=== PATIENT | male | born 1990 | race Caucasian/White ===

== ENCOUNTER 2016-12-11 10:56 | Emergency (ER) | payer OTHER ==
[~2016-12-11] VITALS: Ht 188 cm; Wt 133.5 kg
[2016-12-11 11:01] VITALS: BP 157/80; PULSE 74; TEMP 36.6; O2SAT 98; Ht 188 cm; Wt 133.5 kg
--- NOTE | 2016-12-11 11:45 | DIAGNOSTIC IMAGING REPORT ---
LEFT HAND 3 VIEWS HISTORY: Left hand pain and INJURY COMPARISON: None. FINDINGS: There is no fracture or dislocation. Soft tissues are unremarkable. No radiopaque foreign bodies. IMPRESSION: No fractures. Electronically signed by: Pedro Pablo Magaña M.D. 12/11/2016 11:44 AM Dictated Date/Time: 12/11/2016 11:42 AM
--- NOTE | 2016-12-11 16:02 | EMERGENCY ROOM VISIT NOTE ---
History First contact with patient: 11:05 Chief Complaint: HAND PAIN/INJURY Stated Complaint: L HAND,HARD TIME GRIPPING,HURTS,CLICKING History of Present Illness The patient is a 26 year old male who presents to the Emergency Room with complaints of left hand pain. The patient reports that he lifts heavy boxes at work, and felt a pop on the dorsum of his left hand this morning while moving heavy boxes. His employer sent him to the emergency department for further evaluation. The patient denies any prior history of injuries to the left hand, or chronic hand pain. He currently denies any pain extending into the wrist or forearm. The patient is atoqs-[id number]-[id number], and rates his discomfort a 1 out of 10. Review of Systems 10 system review was performed and was negative except for pertinent positives and negatives as indicated in history of present illness Past Medical/Surgical History Medical Problems: (1) No significant past medical history Surgical Problems: (1) History of arthroscopy of left knee Family History FH: cancer Social History Smoking Status: Never Smoker Alcohol Use: occasionally Marital Status: single Occupation Status: employed Current/Historical Medications No Active Prescriptions or Reported Meds Allergies Coded Allergies: No Known Allergies (Unverified , 12/11/16) Physical Exam Vital Signs Date Time Temp Pulse Resp B/P Pulse Ox O2 Delivery O2 Flow Rate FiO2 12/11/16 11:01 36.6 74 18 157/80 98 Room Air Pain Rating (0-10): 2.0 Physical Exam CONSTITUTIONAL: Healthy and well nourished. Alert and oriented X 3 with positive affect. She does not appear in any acute distress. HEENT: Normocephalic, atraumatic. Pupils equal, round and reactive. NECK: Full active range of motion without discomfort. MUSCULOSKELETAL: Examination of the left hand shows mild edema and faint ecchymosis over the dorsal radial hand. He is tender through the extensor tendons of the second and third fingers. He also has mild discomfort through the extensor tendon of the thumb. Negative anatomic snuffbox tenderness. The patient otherwise has full flexion and extension of the fingers without any evidence for deficit in strength. Capillary refill is less than 2 seconds. INTEGUMENTARY: No rash or other significant dermatologic conditions noted. NEUROLOGIC: Left hand and fingers are sensory intact. Medical Decision & Procedures ER Provider Diagnostic Interpretation: My interpretation of left hand x-rays does not show any evidence for acute fractures or dislocations. Radiologist report is as follows: LEFT HAND 3 VIEWS HISTORY: Left hand pain and INJURY COMPARISON: None. FINDINGS: There is no fracture or dislocation. Soft tissues are unremarkable. No radiopaque foreign bodies. IMPRESSION: No fractures. ED Course Patient history and physical exam were performed. Nurse's notes were reviewed. Vital signs were reviewed and were normal. X-rays of the left hand were normal. The patient was advised that his symptoms are consistent with either a muscular or tendinous strain. He was encouraged to continue intermittently apply ice to the hand. Ibuprofen and Tylenol in alternating fashion for additional pain relief as needed. He was encouraged to follow up with his Worker's Compensation approved orthopedic surgeon if symptoms are not improving within the next 3-5 days. The patient was happy with plan of care, voiced understanding of all discharge instructions, and rated his pain a 1 out of 10 at the conclusion of my exam. Medical Decision Impression Primary Impression: Left hand tendonitis Additional Impression: Work related injury Departure Information Dispostion Home / Self-Care Condition GOOD Prescriptions No Active Prescriptions or Reported Meds Forms HOME CARE DOCUMENTATION FORM, IMPORTANT VISIT INFORMATION Patient Instructions My [facility] Additional Instructions Intermittently apply ice to hand. Ibuprofen 800 mg and/or Tylenol 1000 mg every 8 hours. You may also alternate these medications for more effective pain relief: Ibuprofen --4 HRS--> Tylenol --4 HRS--> ibuprofen --4 HRS--> Tylenol .... FOR WORK: Light use of left hand for the next 3 days. Follow-up with your Worker's Compensation approved orthopedic surgeon for any persistent pain. Problem Qualifiers
== END 2016-12-11 11:55 | disposition home or self-care (01) ==
LOC: C.EDB 11:00 → C.EDD 11:55
DX: M65.842 Other synovitis and tenosynovitis, left hand (principal); X50.0XXA Overexertion from strenuous movement or load, initial encounter; Y99.0 Civilian activity done for income or pay

== ENCOUNTER 2017-07-08 10:49 | Emergency (ER) | payer OTHER ==
[~2017-07-08] VITALS: Ht 185.4 cm; Wt 125.8 kg
[2017-07-08 11:01] VITALS: TEMP 37; Ht 185.4 cm; Wt 125.8 kg
[2017-07-08] MEDS ORDERED: DEXAMETHASONE SOD INJ 4 MG/ML VIAL IM ONE (11:30)
--- NOTE | 2017-07-08 11:31 | EMERGENCY ROOM VISIT NOTE ---
History First contact with patient: 11:16 Chief Complaint: BITE Stated Complaint: MULTIPLE BEE STINGS-WORK RELATED INJURY History of Present Illness The patient is a 26 year old male who presents to the Emergency Room with complaints of multiple bee stings. The patient states that he was at work and was pruning and believes that he stepped on a beehive. He was stung multiple times on the left side of his face and his back. He states this occurred one hour ago. He has had bee stings in the past and denies any significant reactions. He denies any history of anaphylaxis or other allergies. He states there is some swelling around the areas of the stings and he notes some itching and pain. He rates his overall discomfort a 7/10. He denies any facial swelling, difficulty swallowing, difficulty breathing, hives, nausea or vomiting. He did take 50 mg Benadryl prior to arrival. Review of Systems A complete 10 point review of systems was reviewed with the patient with pertinent positives and negatives as per history of present illness. All else were negative. Past Medical/Surgical History Medical Problems: (1) No significant past medical history Surgical Problems: (1) History of arthroscopy of left knee Family History FH: cancer Social History Smoking Status: Former Smoker Alcohol Use: occasionally Marital Status: single Occupation Status: employed Current/Historical Medications Unable to Obtain Active Prescriptions or Reported Meds Physical Exam Vital Signs Date Time Temp Pulse Resp B/P (MAP) Pulse Ox O2 Delivery O2 Flow Rate FiO2 07/08/17 11:35 73 20 124/79 99 Room Air 07/08/17 11:01 37.0 67 16 133/84 99 Room Air Physical Exam VITALS: Vitals are noted on the nurse's note and reviewed by myself. Vital signs stable. GENERAL: This is a 26-year-old male, in no acute distress, nondiaphoretic, well- developed well-nourished. SKIN: There are multiple raised erythematous lesions across the back and to the neck with mild surrounding edema. There are no hives. There is mild swelling superior to the right eye. EARS: External auditory canals clear, tympanic membranes pearly serna without erythema or effusion bilaterally. EYES: Pupils equal round and reactive to light and accommodation. Mild edema superior to the right eye. No significant periorbital edema. MOUTH: Mucous membranes moist. Airway patent. No perioral edema. HEART: Regular rate and rhythm without murmurs gallops or rubs. LUNGS: Clear to auscultation bilaterally without wheezes, rales or rhonchi. NEURO: Patient was alert and oriented to person place and time. Medical Decision & Procedures Medications Administered Medications (Trade) Dose Ordered Sig/Mary Route Start Time Stop Time Status Last Admin Dose Admin Dexamethasone Sodium Phosphate (Decadron Inj) 10 mg NOW ONCE IM 07/08/17 11:30 07/08/17 11:31 DC 07/08/17 11:33 10 MG Medical Decision Differential diagnosis includes local irritation secondary to bee sting, allergic reaction, anaphylaxis, among others. The patient was evaluated as above. He seems to have multiple bee stings with local reactions. There is no evidence of anaphylaxis or significant allergic reaction on exam. He was given 10 mg Decadron IM and instructed to continue Benadryl at home. He will return here for any worsening or concerning symptoms. He verbalized understanding of my assessment and treatment plan and was discharged home in good condition. Medication Reconcilliation Current Medication List: was personally reviewed by me Blood Pressure Screening Patient's blood pressure: Normal blood pressure Impression Primary Impression: Local reaction to bee sting Departure Information Dispostion Home / Self-Care Condition GOOD Prescriptions Unable to Obtain Active Prescriptions or Reported Meds Referrals No Doctor, Assigned (PCP) Patient Instructions My [facility] Additional Instructions You have been treated in the Emergency Department for multiple bee stings. You have been treated and monitored in the Emergency Department appropriately. You should take Benadryl (diphenhydramine) 25-50 mg orally every 4-6 hours until your symptoms resolve. This medication is [id number] and you will NOT need a prescription to purchase this at your local pharmacy. As with every Emergency Department visit, you should follow-up with your primary care provider in 2-3 days for reevaluation. Return to the Emergency Department if your current symptoms worsen despite treatment course outlined above, or if you develop any of the following symptoms : wheezing, tongue or face swelling, tightness in your throat, shortness of breath, or fainting. Problem Qualifiers Primary Impression: Local reaction to bee sting Encounter type: initial encounter Injury intent: accidental or unintentional Qualified Codes: T63.441A - Toxic effect of venom of bees, accidental (unintentional), initial encounter
[2017-07-08 11:35] VITALS: BP 124/79; PULSE 73; O2SAT 99
== END 2017-07-08 11:47 | disposition home or self-care (01) ==
LOC: C.EDB 10:50 → C.EDD 11:47
DX: T63.441A Toxic effect of venom of bees, accidental (unintentional), initial encounter (principal); X58.XXXA Exposure to other specified factors, initial encounter; Y92.89 Other specified places as the place of occurrence of the external cause; Y99.0 Civilian activity done for income or pay; Z87.891 Personal history of nicotine dependence; Z80.9 Family history of malignant neoplasm, unspecified

== ENCOUNTER 2018-02-02 10:12 | Emergency (ER) | payer OTHER ==
[~2018-02-02] VITALS: Ht 185.4 cm; Wt 123.2 kg
[2018-02-02 10:22] VITALS: TEMP 36.9; Ht 185.4 cm; Wt 123.2 kg
[2018-02-02] MEDS ORDERED: IBUPROFEN 600 MG TAB PO STA (11:09)
--- NOTE | 2018-02-02 12:13 | DIAGNOSTIC IMAGING REPORT ---
HEAD CT NONCONTRAST CT DOSE: HISTORY: Dizziness. HEAD INJURY TECHNIQUE: Multiaxial CT images of the head were performed without the use of intravenous contrast. Automated exposure control was utilized for this study. A dose lowering technique was utilized adhering to the principles of ALARA. Comparison: None. Findings: The paranasal sinuses and mastoid air cells are clear. The calvarium and skull base are intact. The ventricles and sulci are within normal limits. There is no mass, hematoma, midline shift, or acute infarct. Impression: No acute intracranial abnormality. Electronically signed by: Pedro Pablo Magaña M.D. 02/02/2018 12:11 PM Dictated Date/Time: 02/02/2018 12:06 PM
--- NOTE | 2018-02-02 12:38 | DIAGNOSTIC IMAGING REPORT ---
CERVICAL SPINE W/O CT DOSE: 1105.43 mGy.cm CLINICAL HISTORY: 27 years-old Male with RIGHT NECK PAIN AFTER INJURY. Acute right neck pain status post trauma COMPARISON: CT head of same day TECHNIQUE: Multiple axial CT images of the cervical spine were obtained without contrast. A dose lowering technique was utilized adhering to the principles of ALARA. FINDINGS: Vertebral body heights and alignment are normal. No fracture or subluxation is identified. The intervertebral disc spaces are preserved. No significant central canal or neural foraminal stenosis is identified. There is mild reversal of the normal cervical lordosis with slight kyphotic curvature centered at C4-C5. The cervical soft tissues appear unremarkable. The visualized lung apices appear clear. Mild hypertrophy of the adenoid tonsils. IMPRESSION: 1. No acute cervical spine fracture or subluxation. 2. Mild reversal of the normal cervical lordosis may be secondary to positioning or paraspinal muscle spasm. The above report was generated using voice recognition software. It may contain grammatical, syntax or spelling errors. Electronically signed by: Connor Irwin M.D. 02/02/2018 12:36 PM Dictated Date/Time: 02/02/2018 12:31 PM
--- NOTE | 2018-02-02 12:58 | EMERGENCY ROOM VISIT NOTE ---
ED Visit Note First contact with patient: 10:30 CHIEF COMPLAINT: Head and neck injury at work this morning HISTORY OF PRESENT ILLNESS: Patient is an otherwise healthy 27-year-old white male who presents the emergency department for evaluation of right-sided neck pain after an injury at work that occurred about an hour ago. 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 He states that it caused his neck to be forced back into the right, and he felt a popping sound in the right side of his neck. Very briefly, he had some dizziness, nausea and a mild headache on the top of his head that he rates a 3/10. The dizziness and the nausea have resolved and the headache is improving. There was no loss of consciousness. He complains primarily of a burning pain in the right side of his neck but he rates a 6/10. It is worse with movement. He was placed in a cervical collar in triage and states that this is making his symptoms worse. He does have a prior history of head injuries. He denies any vision changes, no numbness, tingling or weakness into the upper extremities. He denies any difficulty with balance, speech or coordination. REVIEW OF SYSTEMS: Review of systems as per HPI. All other systems reviewed were negative. 10 systems reviewed. PMH: Electronic medical records are reviewed and summarized as above/below. See Problem List. SOCIAL HISTORY: Patient lives at home with his and children. PHYSICAL EXAM: Vital Signs: Reviewed Nurse's notes. CONSTITUTIONAL: Patient is a pleasant, well-appearing 27-year-old white male who is awake and alert and in no acute distress. HEENT: Normocephalic, atraumatic. Pupils equal, round, reactive to light and accommodation. EOMs intact without nystagmus. Sclera are anicteric. Tympanic membranes intact, with normal landmarks. External canals are clear. No hemotympanum or Casillas sign. Oral and nasopharynx are clear. No CSF rhinorrhea. Mucous membranes are moist. NECK: Supple, nontender, no lymphadenopathy. CERVICAL SPINE: The patient has some generalized soreness to palpation of the posterior cervical spine, but no focal tenderness over the spinous processes and no obvious step-off deformity. Pain is more in the right paraspinous musculature, extending into the right trapezius slightly. He has full active range of motion of the cervical spine, no tenderness with flexion or extension, does have pain with rotation to the right and the left. HEART: Regular rate and rhythm, with normal S1 and S2, no murmur or gallop or rub is heard. LUNGS: Breath sounds equal and clear to auscultation without wheezes, rales, or rhonchi heard. SKIN: No lesions or rash, normal skin turgor. EXTREMITIES: No cyanosis, edema, joint tenderness or swelling. No deformity. Strength to resisted shoulder flexion/abduction, elbow flexion/extension, wrist flexion/extension, intrinsic hand strength, nuclear medicine technician strength, and thumb opposition is 5/5 bilaterally. Upper extremity DTRs are equal and symmetrical bilaterally. NEUROLOGICAL: Alert and oriented x4. Cranial nerves 2 through 12, sensation and strength grossly intact. Gait is normal. Patient is able to toe, heel and tandem walk without difficulty. Negative Romberg, and pronator drift. Finger to nose, finger to finger and rapid alternating movements are intact. Immediate , recent and remote memories are intact. Concentration is normal. ED COURSE: The patient was seen and assessed as above. His old records were reviewed. He was medicated with ibuprofen for discomfort. Head and cervical spine CT scans were obtained. There was no evidence for acute intracranial bleed, skull fracture or cervical spine fracture. The patient appears to have sustained a neck injury from striking his head at work today. He does not have any findings to suspect acute cord compression, disc herniation, C-spine fracture or unstable ligamentous injury. Supportive care measures were discussed with the patient. He was encouraged to heat, take an anti- inflammatory medicine and rest and avoid any heavy lifting or strenuous activity until his symptoms improve. He was advised to follow-up with his Worker's Compensation physician for further care and evaluation if his symptoms are not improving. He was discharged home in good condition. Medication reconciliation: I attest that I have personally reviewed the patient' s current medication list. Blood pressure screening: Patient was found to have a slightly elevated blood pressure due to circumstances. I do not believe that the patient requires hypertension monitoring. HEAD CT NONCONTRAST CT DOSE: HISTORY: Dizziness. HEAD INJURY TECHNIQUE: Multiaxial CT images of the head were performed without the use of intravenous contrast. Automated exposure control was utilized for this study. A dose lowering technique was utilized adhering to the principles of ALARA. Comparison: None. Findings: The paranasal sinuses and mastoid air cells are clear. The calvarium and skull base are intact. The ventricles and sulci are within normal limits. There is no mass, hematoma, midline shift, or acute infarct. Impression: No acute intracranial abnormality. CERVICAL SPINE W/O CT DOSE: 1105.43 mGy.cm CLINICAL HISTORY: 27 years-old Male with RIGHT NECK PAIN AFTER INJURY. Acute right neck pain status post trauma COMPARISON: CT head of same day TECHNIQUE: Multiple axial CT images of the cervical spine were obtained without contrast. A dose lowering technique was utilized adhering to the principles of ALARA. FINDINGS: Vertebral body heights and alignment are normal. No fracture or subluxation is identified. The intervertebral disc spaces are preserved. No significant central canal or neural foraminal stenosis is identified. There is mild reversal of the normal cervical lordosis with slight kyphotic curvature centered at C4-C5. The cervical soft tissues appear unremarkable. The visualized lung apices appear clear. Mild hypertrophy of the adenoid tonsils. IMPRESSION: 1. No acute cervical spine fracture or subluxation. 2. Mild reversal of the normal cervical lordosis may be secondary to positioning or paraspinal muscle spasm. Problem List Medical Problems: (1) Left hand tendonitis Status: Resolved (2) Left hand tendonitis Status: Resolved (3) Local reaction to bee sting Status: Resolved (4) No significant past medical history Status: Chronic (5) Work related injury Status: Resolved (6) Work related injury Status: Resolved Surgical Problems: (1) History of arthroscopy of left knee Status: Resolved Current/Historical Medications No Active Prescriptions or Reported Meds Allergies Coded Allergies: No Known Allergies (Unverified , 02/02/18) Vital Signs Date Time Temp Pulse Resp B/P (MAP) Pulse Ox O2 Delivery O2 Flow Rate FiO2 02/02/18 13:03 74 18 131/81 99 Room Air 02/02/18 12:15 71 20 137/78 98 Room Air 02/02/18 10:22 36.9 78 20 148/83 98 Room Air Medications Administered Medications (Trade) Dose Ordered Sig/Mary Route Start Time Stop Time Status Last Admin Dose Admin Ibuprofen (Motrin Tab) 600 mg NOW STAT PO 02/02/18 11:09 02/02/18 11:10 DC 02/02/18 11:29 600 MG Departure Information Impression Primary Impression: Neck injury Additional Impressions: Head contusion Work related injury Prescriptions No Active Prescriptions or Reported Meds Referrals Colleen Bowman D.O. (PCP) Patient Instructions My [facility] Additional Instructions Ibuprofen(Motrin, Advil) may be used for fever or pain. Use 600mg every six hours as needed. Take with food. Avoid using more than 2400mg in a 24 hour period. Do not use 2400mg per day for more than three consecutive days without physician direction. Prolonged inappropriate use can lead to stomach upset or ulcers. This medication can be taken if you need to drive, work, or perform activities which may be dangerous when taking narcotic pain medication. (AND/OR) Acetaminophen(Tylenol) may be used for fever or pain. Use 1000mg every six hours as needed. Avoid using more than 3000mg in a 24 hour period. This medication can be taken if you need to drive, work, or perform activities which may be dangerous when taking narcotic pain medication. Rest and avoid heavy lifting until your symptoms resolve and then gradually return to full activity. A good rule of thumb is if it hurts your back to perform a certain activity, then it should be avoided until you are healthy again. A heating pad, warm compresses, or a hot shower may help with tight muscles and can be done several times a day as needed. Continue current medications. Return to the ER immediately for any numbness, tingling, severe pain, loss of control of your bowels or bladder, inability to walk, or as needed. Follow up with your Worker's Compensation physician in 3-5 days for a recheck of your current condition. Problem Qualifiers
[2018-02-02 13:03] VITALS: BP 131/81; PULSE 74; O2SAT 99
== END 2018-02-02 13:04 | disposition home or self-care (01) ==
LOC: C.EDB 10:15 → C.EDC 13:04
DX: S19.9XXA Unspecified injury of neck, initial encounter (principal); S00.93XA Contusion of unspecified part of head, initial encounter; W22.09XA Striking against other stationary object, initial encounter; Y93.E9 Activity, other interior property and clothing maintenance; Y99.0 Civilian activity done for income or pay; Z98.890 Other specified postprocedural states